=== PATIENT | male | born 1965 | race African-American/Black ===

== ENCOUNTER 2017-08-20 16:41 | Emergency (ER) | payer BC, OTHER ==
[2017-08-20 17:11] VITALS: BP 124/85; PULSE 91; BMI 44.4
--- NOTE | 2017-08-20 17:13 | PDOC ---
Rapid Medical Evaluation Time Seen by Provider: 08/20/17 17:10 Medical Evaluation: Allergies Allergy/AdvReac Type Severity Reaction Status Date / Time No Known Drug Allergies Allergy Verified 06/02/14 06:31 08/20/17 17:11 I have performed a brief in-person evaluation of this patient. 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 Has h/o HTN Pertinent physical exam findings:draining paronychia to r 5th finger I have ordered the following:xray r/o fb The patient will proceed to the ED for further evaluation. 08/20/17 17:13
--- NOTE | 2017-08-20 18:32 | PDOC ---
History of Present Illness - General Chief Complaint: Injury Stated Complaint: FINGER INJURY Time Seen by Provider: 08/20/17 17:10 History Source: Patient Exam Limitations: No Limitations - History of Present Illness Initial Comments: 08/20/17 18:28 States had foreign body/piece of metal embedded in right fifth digit last week, he is to needle to extract and since that time has gotten swollen and painful Occurred: reports: last week Severity: reports: mild, moderate Pain Location: reports: upper extremity (right 5th digit ) Past History - Travel Traveled outside of the country in the last 30 days: No Close contact w/someone who was outside of country & ill: No - Past Medical History Allergies/Adverse Reactions: Allergies Allergy/AdvReac Type Severity Reaction Status Date / Time No Known Drug Allergies Allergy Verified 08/20/17 17:11 Home Medications: Ambulatory Orders Amlodipine Besylate [Norvasc -] 5 mg PO DAILY 06/01/14 Meloxicam 7.5 mg PO ASDIR 11/03/14 Sulfamethoxazole/Trimethoprim [Bactrim *Ds*] 1 each PO BID #14 tablet 08/20/17 Anemia: No Asthma: No Cancer: No Cardiac Disorders: No CVA: No COPD: No CHF: No Dementia: No Diabetes: No GI Disorders: No Disorders: No HTN: Yes Hypercholesterolemia: No Liver Disease: No Seizures: No Thyroid Disease: No - Surgical History Abdominal Surgery: No Appendectomy: No Cardiac Surgery: No Cholecystectomy: No Lung Surgery: No Neurologic Surgery: No Orthopedic Surgery: No - Suicide/Smoking/Psychosocial Hx Smoking Status: No Smoking History: Never smoked Number of Cigarettes Smoked Daily: 0 Hx Alcohol Use: No Drug/Substance Use Hx: No Substance Use Type: None Hx Substance Use Treatment: No Trauma Specific PMHX - Complaint Specific PMHX Back Injury: No Neck Injury: No Review of Systems - Review of Systems Able to Perform ROS?: Yes Is the patient limited Telugu proficient: Yes HEENTM: No: Symptoms Reported Respiratory: No: Symptoms reported Musculoskeletal: Yes: Symptoms Reported, See HPI, Joint Swelling Integumentary: Yes: Symptoms Reported, See HPI, Lesions (swelling and erythema at right fifth digit lateral eponychia him. No fluctuance noted) Neurological: Yes: Symptoms reported All Other Systems: Reviewed and Negative *Physical Exam - Vital Signs Last Vital Signs Temp Pulse Resp BP Pulse Ox 91 H 20 124/85 98 11/01/17 17:09 08/20/17 17:09 08/20/17 17:09 08/20/17 17:09 - Physical Exam General Appearance: Yes: Nourished, Appropriately Dressed, Apparent Distress, Mild Distress HEENT: positive: MITZI, Normal ENT Inspection Neck: positive: Supple. negative: Tender Respiratory/Chest: positive: Lungs Clear Extremity: positive: Normal Capillary Refill, Normal Range of Motion (full range of motion without tension or tenderness on flexion and extension. Has a pyogenic granuloma noted to the lateral aspect of right fifth eponychia him. No fluctuance noted no purulent drainage noted.). negative: Normal Inspection Integumentary: positive: Normal Color Neurologic: positive: french binding folder II-XII NML intact, Fully Oriented, Alert, Normal Mood/ Affect, Normal Response, Motor Strength 5/5 Progress Note - Progress Note Progress Note: Pyogenic granuloma, will treat with antibiotic ointment, short course of antibiotics and have follow-up with either hand specialist or plastic surgeon. *DC/Admit/Observation/Transfer Diagnosis at time of Disposition: Paronychia of finger of right hand - Discharge Dispostion Disposition: HOME Condition at time of disposition: Stable Admit: No - Referrals Referrals: Benson Gamboa MD [Staff Physician] - - Patient Instructions Printed Discharge Instructions: DI for Paronychia Additional Instructions: Rest, keep hand elevated Avoid heavy lifting or strenuous activity until healed Soak finger every 2-3 hours while awake for the next 2-3 days to keep continue to allow drainage Reapply bacitracin ointment and bulky dressing after each soaking May use ibuprofen or Tylenol for pain relief Followup with private physician in one to 2 days for wound check as needed Return immediately to emergency department or private doctor's for worsening redness, swelling, pain, streaking Take all of antibiotics until completed - Post Discharge Activity Forms/Work/School Notes: Back to Work
[2017-08-20] MEDS ORDERED: SULFAMETHOXAZOLE/TRIMETHOPRIM 800MG/160MG D.S. TABLET PO ONE (19:51)
[2017-08-20] MEDS ORDERED: DIPHTH,PERTUSS(ACELL),TET 0.5 ML DISP.SYRIN IM ONE (19:51)
[2017-08-20] MEDS ORDERED: SULFAMETHOXAZOLE/TRIMETHOPRIM 800MG/160MG D.S. TABLET ONE (19:53)
== END 2017-08-20 20:10 | disposition home or self-care (01) ==
LOC: JERFT 16:41
PROC: 3E0234Z Introduction of Serum, Toxoid and Vaccine into Muscle, Percutaneous Approach (ICD-10-PCS; principal; 2017-08-20)
DX: L03.011 Cellulitis of right finger (principal); I10 Essential (primary) hypertension
CPT/HCPCS: 90715; 99281-25